=== PATIENT | female | born 1995 | race Caucasian/White ===

== ENCOUNTER 2017-02-12 19:24 | Emergency (ER) | payer SELFPAY ==
[~2017-02-12] VITALS: Ht 165.1 cm; Wt 99.8 kg
[~2017-02-12 19:24] MED LIST: PNV1TABL25 PO; QUET300T5 PO
[2017-02-12 19:40] VITALS: BP 135/72
[2017-02-12] MEDS ORDERED: BENZ100C PO (19:55)
[2017-02-12] MEDS ORDERED: PRED20TA PO (19:55)
--- NOTE | 2017-02-12 19:55 | PHYS DOC ---
Past Medical History Past Medical History: Bipolar Additional Past Medical Histor: chronic back pain Past Surgical History: No Surgical History Alcohol Use: None Drug Use: None Adult General Chief Complaint Chief Complaint: COUGH HPI HPI Patient is a 21 year old L presents the ED complaining of cough 1 day. Patient states she woke up with a cough. States the cough as dry. Associated symptoms include rhinorrhea and sore throat. Sick contacts at home with similar symptoms. Denies chest pain, shortness of breath, dizziness, weakness, nausea/ vomiting, headache, fever, abdominal pain, or rash. Review of Systems Review of Systems Constitutional: Denies fever or chills [] Eyes: Denies change in visual acuity, redness, or eye pain [] HENT: Complains of nasal congestion and sore throat. [] Respiratory: Complains of cough. Denies shortness of breath [] Cardiovascular: No additional information not addressed in HPI [] GI: Denies abdominal pain, nausea, vomiting, bloody stools or diarrhea [] : Denies dysuria or hematuria [] Musculoskeletal: Denies back pain or joint pain [] Integument: Denies rash or skin lesions [] Neurologic: Denies headache, focal weakness or sensory changes [] Endocrine: Denies polyuria or polydipsia [] All other systems were reviewed and found to be within normal limits, except as documented in this note. Allergies Allergies Allergies Coded Allergies Type Severity Reaction Last Updated Verified No Known Drug Allergies 06/13/15 No Physical Exam Physical Exam Constitutional: Well developed, well nourished, no acute distress, non-toxic appearance. [] HENT: Normocephalic, atraumatic, bilateral external ears normal, MILD PHARYNGEAL ERYTHEMA. oropharynx moist, no oral exudates, nose normal. [] Eyes: PERRLA, EOMI, conjunctiva normal, no discharge. [] Neck: Normal range of motion, no tenderness, supple, no stridor. [] Cardiovascular:Heart rate regular rhythm, no murmur [] Lungs & Thorax: Bilateral breath sounds clear to auscultation [] Abdomen: Bowel sounds normal, soft, no tenderness, no masses, no pulsatile masses. [] Skin: Warm, dry, no erythema, no rash. [] Neurologic: Alert and oriented X 3, normal motor function, normal sensory function, no focal deficits noted. [] Psychologic: Affect normal, judgement normal, mood normal. [] Current Patient Data Vital Signs Vital Signs Date Time Temp Pulse Resp B/P (MAP) Pulse Ox O2 Delivery O2 Flow Rate FiO2 02/12/17 19:40 99.2 103 20 99 Room Air 99.2 EKG EKG [] Radiology/Procedures Radiology/Procedures [] Course & Med Decision Making Course & Med Decision Making Pertinent Labs and Imaging studies reviewed. (See chart for details) [] Dragon Disclaimer Dragon Disclaimer This electronic medical record was generated, in whole or in part, using a voice recognition dictation system. Departure Departure Impression: Primary Impression: Cough Disposition: HOME, SELF-CARE Condition: STABLE Referrals: NO PCP (PCP) ENRIQUETA NEAL MD Patient Instructions: Cough, Adult, Viral Infections Scripts Benzonatate (TESSALON PERLE) 100 Mg Capsule 1 CAP PO TID, #20 CAP Prov: LAMAR DURAN 02/12/17 Prednisone (PREDNISONE) 20 Mg Tablet 2 TAB PO DAILY, #10 TAB Prov: LAMAR DURAN 02/12/17 LAMAR DURAN Feb 12, 2017 19:55
== END 2017-02-12 20:02 | disposition home or self-care (01) ==
LOC: ER 19:24
DX: R05 Cough (principal); J02.9 Acute pharyngitis, unspecified; J34.89 Other specified disorders of nose and nasal sinuses; F31.9 Bipolar disorder, unspecified; G89.29 Other chronic pain
CPT/HCPCS: 99283

== ENCOUNTER 2017-09-29 18:53 | Emergency (ER) | payer SELFPAY ==
[2017-09-29] MEDS: HYDROcodone/APAP 5/325MG 1 TAB TABLET PO (19:36)
[2017-09-29] MEDS: IBUPROFEN 800 MG TABLET. PO (19:36)
== END 2017-09-29 19:50 | disposition home or self-care (01) ==
LOC: ER 18:53
DX: K08.89 Other specified disorders of teeth and supporting structures (principal); G89.29 Other chronic pain; F31.9 Bipolar disorder, unspecified
CPT/HCPCS: 99283

== ENCOUNTER 2020-07-27 20:20 | Emergency (ER) | payer SELFPAY ==
[~2020-07-27] VITALS: Ht 165.1 cm; Wt 108.9 kg
[~2020-07-27 20:20] MED LIST changes: +AMOX500C PO; +BENZ100C PO; +PRED20TA PO; +TRAM50TA PO
[2020-07-27 20:52] VITALS: BP 148/93
[2020-07-27] MEDS ORDERED: BENZ100C PO (21:57)
[2020-07-27] MEDS ORDERED: LORA-627 PO (21:57)
[2020-07-27] MEDS ORDERED: PROM12.58 PO (21:57)
[2020-07-27] MEDS ORDERED: DEXT30SU19 PO (21:57)
[2020-07-27] MEDS ORDERED: PRED50TA PO (21:57)
--- NOTE | 2020-07-27 21:57 | PHYS DOC ---
Past Medical History Past Medical History: Bipolar Additional Past Medical Histor: chronic back pain Past Surgical History: No Surgical History Smoking Status: Former Smoker Alcohol Use: Occasionally Drug Use: None General Adult EDM: Chief Complaint: MULTIPLE COMPLAINTS HPI: HPI: Patient is a 24 year old female with history of bipolar presenting today complaining of cough, congestion, sore throat, bilateral ear pain worse on the right, symptoms began 2 days ago. Patient is in the ED with a daughter with same symptoms are reports other family members at home with similar symptoms. She states she has tried multiple mmuo-rfs-[id number] medicines with no relief. She states she wants a prescription cough syrup for her cough. She states she had negative Covid test 2 days ago, she also states she vomited today. She states symptoms began after being exposed to another family member that had similar symptoms visited them a couple days ago. Denies any chance she is . Review of Systems: Review of Systems: Constitutional: Denies fever or chills. [] Eyes: Denies change in visual acuity. [] HENT: Reports sore throat, nasal congestion, bilateral ear pain Respiratory: Reports cough, denies shortness of breath. [] Cardiovascular: Denies chest pain or edema. [] GI: Reports vomiting. Denies abdominal pain, bloody stools or diarrhea. [] : Denies dysuria. [] Musculoskeletal: Denies back pain or joint pain. [] Integument: Denies rash. [] Neurologic: Denies headache, focal weakness or sensory changes. [] Endocrine: Denies polyuria or polydipsia. [] Lymphatic: Denies swollen glands. [] Psychiatric: Denies depression or anxiety. [] Heart Score: C/O Chest Pain: N/A Risk Factors: Risk Factors: DM, Current or recent (<one month) smoker, HTN, HLP, family history of CAD, obesity. Risk Scores: Score 0 - 3: 2.5% MACE over next 6 weeks - Discharge Home Score 4 - 6: 20.3% MACE over next 6 weeks - Admit for Clinical Observation Score 7 - 10: 72.7% MACE over next 6 weeks - Early Invasive Strategies Allergies: Allergies: Allergies Coded Allergies Type Severity Reaction Last Updated Verified No Known Drug Allergies 06/13/15 No Physical Exam: PE: Constitutional: Well developed, well nourished, no acute distress, non-toxic appearance. [] HENT: Normocephalic, atraumatic, bilateral external ears normal, oropharynx moist, no oral exudates, nose normal. [] Eyes: PERRLA, EOMI, conjunctiva normal, no discharge. [] Neck: Normal range of motion, no tenderness, supple, no stridor. [] Cardiovascular:Heart rate regular rhythm, no murmur [] Lungs & Thorax: Bilateral breath sounds clear to auscultation [] Abdomen: Bowel sounds normal, soft, no tenderness, no masses, no pulsatile masses. [] Skin: Warm, dry, no erythema, no rash. [] Back: No tenderness, no CVA tenderness. [] Extremities: No tenderness, no cyanosis, no clubbing, ROM intact, no edema. [] Neurologic: Alert and oriented X 3, normal motor function, normal sensory function, no focal deficits noted. [] Psychologic: Affect normal, judgement normal, mood normal. [] Current Patient Data: Labs: Laboratory Tests Test 07/27/20 20:33 POC Urine HCG, Qualitative Hcg negative (Negative) Vital Signs: Vital Signs Date Time Temp Pulse Resp B/P (MAP) Pulse Ox O2 Delivery O2 Flow Rate FiO2 07/27/20 20:52 98.9 86 20 148/93 (111) 100 Room Air 98.9 EKG: EKG: [] Radiology/Procedures: Radiology/Procedures: [] Course & Med Decision Making: Course & Med Decision Making Pertinent Labs and Imaging studies reviewed. (See chart for details) This is a 24-year-old female patient presenting to the ED today with viral type symptoms/seasonal allergy symptoms including cough, nasal congestion, sore throat, symptoms began 2 days ago. She reports having a negative Covid test 2 days ago. She is requesting a cough syrup stating onhk-yom-nfrzwtd medicines are not working. Offered patient Delsym, Claritin-D or Zyrtec-D, Clemencia Ryder. Discharge to home. Radha Disclaimer: Radha Disclaimer: This electronic medical record was generated, in whole or in part, using a voice recognition dictation system. Departure Departure Impression: Primary Impression: Cough Additional Impression: Seasonal allergies Disposition: 01 HOME / SELF CARE / HOMELESS Condition: STABLE Referrals: NO PCP (PCP) Follow-up with your doctor next week Patient Instructions: Allergies, Generic, Cough, Adult, Jnhj-[id number], Nausea an d Vomiting, [id number] Additional Instructions: You were evaluated in the emergency room with symptoms consistent with viral illness and seasonal allergies. Please take the prescribed medications as ordered. Follow-up with your doctor next week Scripts Dextromethorphan Polistirex (DELSYM) 30 Mg/5 Ml Lorie.er.12h 5 ML PO BID for 12 Days, #120 ML 0 Refills Prov: OBEY STEPHENS APRN 07/27/20 Promethazine Hcl (PROMETHAZINE HCL) 12.5 Mg Tablet 1 TAB PO Q6-8HRS for motion sickness for 5 Days, #20 TAB 0 Refills Prov: OBEY STEPHENS APRN 07/27/20 Loratadine/Pseudoephedrine (CLARITIN-D 24 HOUR TABLET) 1 Each Tab.er.24h 1 TAB PO DAILY for 30 Days, #30 TAB 0 Refills Prov: OBEY STEPHENS APRN 07/27/20 Benzonatate (TESSALON PERLE) 100 Mg Capsule 1 CAP PO TID, #30 CAP Prov: OBEY STEPHENS APRN 07/27/20 Prednisone (PREDNISONE) 50 Mg Tablet 1 TAB PO DAILY, #5 TAB Prov: OBEY STEPHENS APRN 07/27/20 OBEY STEPHENS APRN Jul 27, 2020 21:57
== END 2020-07-27 22:06 | disposition home or self-care (01) ==
LOC: ER 20:20
DX: J30.2 Other seasonal allergic rhinitis (principal); R05 Cough; H92.03 Otalgia, bilateral; F31.9 Bipolar disorder, unspecified; G89.29 Other chronic pain; Z87.891 Personal history of nicotine dependence
CPT/HCPCS: 81025; 99283

== ENCOUNTER 2021-03-17 03:59 | Emergency (ER) | payer SELFPAY ==
[~2021-03-17] VITALS: Ht 165.1 cm; Wt 100.0 kg
[~2021-03-17 03:59] MED LIST changes: +DEXT30SU19 PO; +LORA-627 PO; +PRED50TA PO; +PROM12.58 PO
--- NOTE | 2021-03-17 04:46 | PHYS DOC ---
Past Medical History Past Medical History: Bipolar Additional Past Medical Histor: chronic back pain Past Surgical History: No Surgical History Smoking Status: Former Smoker Alcohol Use: Occasionally Drug Use: None General Adult EDM: Chief Complaint: SEIZURE HPI: HPI: Patient is a 25 year old F who presents post-seizure. This is her second seizure, the first one happened in August 2020. Last time EMS took her to where a full-workup was done. She did not fill the prescription they gave at the time, does not remember the name of the medication. She does not recall any incident or symptoms leading up to the seizure tonight. Last thing she remembers was falling asleep in her boyfriend's bed. She believes he witnessed the seizure, as he is the one who called EMS. He was not present at time of interview. She does not know how long the seizure lasted or how long she was unconscious. She reports nausea - without emesis, and generalized fatigue. She denies headache, changes in vision, chest pain, fever, myalgias, or numbness/tingling. She denies any recent illness, or changes in medications. Occasional alcohol use, has not had any alcohol in over a week. No known loss of bowel/bladder control. Review of Systems: Review of Systems: Constitutional: Denies fever or chills. Eyes: Denies change in visual acuity. HENT: Denies nasal congestion or sore throat. Respiratory: Denies cough or shortness of breath. Cardiovascular: Denies chest pain or edema. GI: Positive nausea, NO vomiting, bloody stools or diarrhea. : Denies dysuria. Musculoskeletal: Denies back pain or joint pain. Integument: Denies rash. Neurologic: Denies headache, focal weakness or sensory changes. Endocrine: Denies polyuria or polydipsia. Lymphatic: Denies swollen glands. Psychiatric: Denies depression or anxiety. Heart Score: C/O Chest Pain: N/A Risk Factors: Risk Factors: DM, Current or recent (<one month) smoker, HTN, HLP, family history of CAD, obesity. Risk Scores: Score 0 - 3: 2.5% MACE over next 6 weeks - Discharge Home Score 4 - 6: 20.3% MACE over next 6 weeks - Admit for Clinical Observation Score 7 - 10: 72.7% MACE over next 6 weeks - Early Invasive Strategies Current Medications: Current Medications Medications (Trade) Dose Ordered Sig/Chato Start Time Stop Time Status Last Admin Dose Admin Ondansetron HCl (Zofran) 4 mg 1X ONCE 03/17/21 04:30 03/17/21 04:31 UNV Sodium Chloride 1,000 ml @ 1,000 mls/hr 1X ONCE 03/17/21 04:30 03/17/21 05:29 UNV Allergies: Allergies: Allergies Coded Allergies Type Severity Reaction Last Updated Verified No Known Drug Allergies 06/13/15 No Physical Exam: PE: Constitutional: Well developed, well nourished, no acute distress, non-toxic appearance. HENT: Normocephalic, atraumatic, bilateral external ears normal, oropharynx moist, no oral exudates, nose normal. Eyes: PERRLA, EOMI, conjunctiva normal, no discharge. Neck: Normal range of motion, no tenderness, supple, no stridor. Cardiovascular: Heart rate regular rhythm, no murmur Lungs & Thorax: Bilateral breath sounds clear to auscultation Abdomen: Bowel sounds normal, soft, no tenderness, no masses, no pulsatile masses. Skin: Warm, dry, no erythema, no rash. Back: No tenderness, no CVA tenderness. Extremities: No tenderness, no cyanosis, no clubbing, ROM intact, no edema. Neurologic: Alert and oriented X 3, normal motor function, normal sensory function, no focal deficits noted. Psychologic: Affect normal, judgment normal, mood normal. EKG: EKG: Performed at 0433 Rate [address] elevation No ST depression No acute OH [] Radiology/Procedures: Radiology/Procedures: [] Course & Med Decision Making: Course & Med Decision Making Pertinent Labs and Imaging studies reviewed. (See chart for details) []Patient observed. No repeat seizure. Labs within normal limits. patient discharged and referred to neurology. Seizure instructions provided to patient,. Radha Disclaimer: Radha Disclaimer: This electronic medical record was generated, in whole or in part, using a voice recognition dictation system. Departure Departure Impression: Primary Impression: Seizure Disposition: HOME / SELF CARE / HOMELESS Condition: STABLE Referrals: NO PCP (PCP) KIMBERLY MCGRATH MD Patient Instructions: Seizure, Adult ZO ORTEGA I DO Mar 17, 2021 04:46
--- NOTE | 2021-03-17 04:55 | EKG ---
[facility] [address] [place] [address] Test Date: 2021-03-17 Test Time: 04:33:41 Pat Name: JEET CHAVEZ Department: Room: Gender: F Intermediate Manager: : 1995 Requested By: ZO ORTEGA Order Number: [id number] Reading MD: Skyler Nguyen Measurements Intervals [place] Rate: 111 P: 28 AK: 136 QRS: 36 QRSD: 72 T: 22 QT: 324 QTc: 444 Interpretive Statements SINUS TACHYCARDIA Electronically Signed On 03-17-2021 12:35:21 SAMPLE SELECTOR by Skyler Nguyen
[2021-03-17] MEDS ORDERED: IV NORMAL SALINE 1000ML BAG 1,000 ML IV ONE (05:00)
[2021-03-17] MEDS ORDERED: ONDANSETRON PF 4 MG/2 ML VIAL. IVP ONE (05:00)
[2021-03-17 05:13] LABS: BASO % 1 % (0-3); EOS # 0.1 x10^3/uL (0.0-0.7); EOS % 2 % (0-3); HEMATOCRIT 42.5 % (36.0-47.0); HEMOGLOBIN 15.2 g/dL (12.0-15.5); LYMPH % 24 % (24-48); MEAN CORPUSCULAR HEMOGLOBIN 33 pg (25-35); MEAN CORPUSCULAR HGB CONC 36 g/dL (31-37); MEAN CORPUSCULAR VOLUME 92 fL (79-100); MONO # 0.3 x10^3/uL (0.0-1.1); MONO % 8 % (0-9); NEUT # 2.9 x10^3/uL (1.8-7.7); NEUT % 66 % (31-73); PLATELET COUNT 171 x10^3/uL (140-400); RED BLOOD COUNT 4.63 x10^6/uL (3.50-5.40); RED CELL DISTRIBUTION WIDTH 14.1 % (11.5-14.5); WHITE BLOOD COUNT 4.3 x10^3/uL (4.0-11.0)
[2021-03-17 05:22] VITALS: BP 142/84
[2021-03-17 05:23] LABS: CALCIUM 8.6 mg/dL (8.5-10.1); CREATININE 0.8 mg/dL (0.6-1.0); GFR 87.4; POTASSIUM 3.8 mmol/L (3.5-5.1)
[2021-03-17 05:28] LABS: ALBUMIN 3.9 g/dL (3.4-5.0); TOTAL BILIRUBIN 0.4 mg/dL (0.2-1.0); TOTAL PROTEIN 7.8 g/dL (6.4-8.2)
--- NOTE | 2021-03-17 18:12 | NUR ---
IP: Informed pt of negative covid test. Pt verbalized understanding.
== END 2021-03-17 06:15 | disposition home or self-care (01) ==
LOC: ER 03:59
DX: R56.9 Unspecified convulsions (principal); Z20.822 Contact with and (suspected) exposure to COVID-19; F31.9 Bipolar disorder, unspecified; G89.29 Other chronic pain; Z87.891 Personal history of nicotine dependence
CPT/HCPCS: 36415; 80053; 85025; 87426; 93005; 96361; 96374; 99284; J2405; J7030; U0003; U0005